=== PATIENT | male | born 1940 | race Caucasian/White ===

== ENCOUNTER 2022-08-10 08:09 | Inpatient (IN) | payer OTHER ==
[~2022-08-10] VITALS: Ht 185.4 cm; Wt 96.6 kg
[2022-08-10 08:10] VITALS: BP_SYST 157
--- NOTE | 2022-08-10 08:10 | NUR ---
BROUGHT BACK TO BED #7 AND TRIAGED. REPORT GIVEN TO EDWIGE
--- NOTE | 2022-08-10 08:13 | NUR ---
PT RECEIVED, CARE ASSUMED. PT PRESENTS SELF TO ER WITH COUGH OF DRY COUGH AND ELEVATED TEMP. CONNECTED TO TELE MONITOR: ST Mari DODGE AT BEDSIDE. WILL CONTINUE TO MONITOR
--- NOTE | 2022-08-10 08:20 | NUR ---
PT RECEIVED, CARE ASSUMED. PT PRESENTS SELF TO ER FOR EVALUATION OF COUGH, ELEVATED TEMP. CONNECTED TO TELE MONITOR: [id number]. DR AGUIRRE AT BEDSIDE.
[2022-08-10 08:51] LABS: BASOPHILS % (AUTO) 0.2 % (0.0-2.0); EOSINOPHILS % (AUTO) 0.1 % (0.0-4.0); HEMATOCRIT 40.9 % (36-54); HEMOGLOBIN 13.7 g/dL (14.0-18.0); LYMPHOCYTES # (AUTO) 4.5 K/uL (1.0-5.5); MEAN CORPUSCULAR HEMOGLOBIN 31 pg (27-31); MEAN CORPUSCULAR HGB CONC 33 % (32-36); MEAN CORPUSCULAR VOLUME 91 fL (79.0-98.0); MONOCYTES # (AUTO) 0.7 K/uL (0.0-1.0); MONOCYTES % (AUTO) 6.8 % (1.7-9.3); NEUTROPHILS # (AUTO) 4.8 K/uL (1.8-7.7); NEUTROPHILS % (AUTO) 47.9 % (40.0-70.0); PLATELET COUNT (AUTO) 147 K/uL (130-430); RED BLOOD CELL COUNT(AUTO) 4.48 MIL/uL (4.2-6.2); RED CELL DISTRIBUTION WIDTH 13.8 % (9.0-15.0); WHITE BLOOD COUNT (AUTO) 10.1 K/uL (4.8-10.8)
[2022-08-10 09:06] LABS: ANION GAP 10 (5-15); CALCIUM 8.3 mg/dL (8.4-11.0); CHLORIDE 105 mmol/L (98-107); CREATININE 1.29 mg/dL (0.55-1.30); GLUCOSE 129 mg/dL (70-99); UREA NITROGEN, BLOOD 15 mg/dL (8-21)
[2022-08-10 09:10] LABS: ALANINE AMINOTRANSFERASE 28 U/L (12-78); ALBUMIN 3.5 g/dL (3.4-4.8); ASPARTATE AMINOTRANSFERASE 19 U/L (10-37); TOTAL BILIRUBIN 0.6 mg/dL (0.0-1.0)
[2022-08-10] MEDS ORDERED: IPRATROPIUM/ALBUTEROL SULFATE 3 ML AMPUL.NEB (DUONEB) INH ONE (09:15)
--- NOTE | 2022-08-10 09:43 | NUR ---
COVID AND FLU SWABBED AND SENT TO LAB
--- NOTE | 2022-08-10 10:00 | NUR ---
INITIATED AIR/DROPLET ISOLATION.
--- NOTE | 2022-08-10 10:08 | NUR ---
SPOKE WITH PTS REGARDING +COVID, PERMISSION WAS GIVEN BY SPOUSE. DR AGUIRRE AT BEDSIDE SPEAKING WITH PT.
[2022-08-10] MEDS ORDERED: DEXAMETHASONE SOD PHOSPHATE 10 MG/ML VIAL IVP ONE (10:15)
--- NOTE | 2022-08-10 11:11 | NUR ---
Admit bed requested Patient will be admitted to care of . Admitted to TELEMETRY unit. Diagnosis COVID+ Inpatient (Yes or No) Y Observation (Yes or No) N Orientation concerns or request close to nursing station (Yes or No) N Covid Status + POSITIVE On vent or bipap N Isolation requirements COVID Needs a sitter NO From Home (Yes or if No enter name of facility) YES Requires Dialysis (Yes or No) N Med Rec Completed (Yes of No) YES
[2022-08-10] MEDS ORDERED: LEVO150T8 PO (11:16)
[2022-08-10] MEDS ORDERED: ATOR40TA68 PO (11:16)
[2022-08-10] MEDS ORDERED: CLOP75TA32 PO (11:16)
[2022-08-10] MEDS ORDERED: METO50TA7 PO (11:16)
--- NOTE | 2022-08-10 11:22 | NUR ---
Medication reconciliation completed with information provided by LIST PROVIDED. Any prior medication reconciliation on file was reviewed and corrected.
[2022-08-10] MEDS ORDERED: ASA81 PO (11:32)
[2022-08-10] MEDS ORDERED: DEXAMETHASONE SOD PHOSPHATE 10 MG/ML VIAL ONE (12:32)
--- NOTE | 2022-08-10 14:05 | NUR ---
Patient will be admitted to care of [facility]. Admitted to unit. Will go to room . Belongings list completed. Complete and up to date summary report printed. SBAR report to be given at bedside with opportunity for questions.
--- NOTE | 2022-08-10 14:14 | NUR ---
OPENING NOTES: RECEIVED BEDSIDE SBAR REPORT FROM OSITO SAUNDERS (ER), NO S/S OF ANY DISTRESS, SKIN INTACT, IV INTACT, AMBULATE IN ROOMS NS 2 LTS, BED AT LOW AND LOCKED POSITION. ALL SAFETY CHECKS DONE AND WILL DO THOUGHT THE DAY. CALL LIGHT IN REACH.
[2022-08-10 16:10] VITALS: BP_SYST 137
[2022-08-10 16:26] VITALS: BP_SYST 117
--- NOTE | 2022-08-10 18:36 | NUR ---
CLOSING NOTES: PATIENT REMAINED STABLE TODAY, NO S/S OF ANY DISTRESS NON LABOR BREATHING, BED AT LOW AND LOCKED POSITION CALL LIGHT IN REACH IV INTACT, ALL SAFETY CHECKS DONE THOUGHT THE DAY. WILL GIVE PM SHIFT NURSE BEDSIDE SBAR.
[2022-08-10] MEDS ORDERED: *LOVENOX 1MG/KG Q24H/PHARMACY XX ONE (19:00)
[2022-08-10 20:00] VITALS: BP_SYST 129
--- NOTE | 2022-08-10 20:45 | NUR ---
OPENING NOTE PT LYING IN BED AND EYES OPEN. BREATHING EVEN AND NONLABORED ON RA. A/O X4. FOUND WHEEZING SOUND ON BILATERAL OF LUNGS. COUGHING PRESENT. NO S/S DISTRESS OR PAIN. PT WAITING FOR CARDIAC MEDICATION SO INFORMED THE CARDIAC MEDICATION WILL BE START @0900. PT VERBALLY UNDERSTANDING. SAFETY CHECKS IN PLACE. CALL LIGHT IN REACH. CONTINUE TO MONITOR
[2022-08-10] MEDS ORDERED: ENOXAPARIN SODIUM 100 MG/ML SYRINGE SUBCUT SCH (21:00)
[2022-08-10] MEDS: DECADRON 4 MG TABLET PO SCH (21:24)
--- NOTE | 2022-08-10 22:25 | NUR ---
ROUNDING NOTE PT USING RESTROOM. GAIT IS STEADY. PROVIDED ORAL CARE. SAFETY CHECKS IN PLACE. CALL LIGHT IN REACH. CONTINUE TO MONITOR
--- NOTE | 2022-08-11 00:35 | NUR ---
ROUNDING NOTE PT LYING BED AND EYES CLOSED. BREATHING EVEN AND NONLABORED. COUGHING IS NOT PRESENT AT THIS MOMENT. SAFETY CHECKS IN PLACE. CALL LIGHT IN REACH. CONTINUE TO MONITOR
[2022-08-11 01:03] VITALS: BP_SYST 118
[2022-08-11 02:39] VITALS: BP_SYST 129
[2022-08-11 06:55] LABS: HEMATOCRIT 40.1 % (36-54); HEMOGLOBIN 13.2 g/dL (14.0-18.0); LYMPHOCYTES # (AUTO) 5.7 K/uL (1.0-5.5); MEAN CORPUSCULAR HEMOGLOBIN 30 pg (27-31); MEAN CORPUSCULAR HGB CONC 33 % (32-36); MEAN CORPUSCULAR VOLUME 90 fL (79.0-98.0); MONOCYTES # (AUTO) 0.3 K/uL (0.0-1.0); MONOCYTES % (AUTO) 2.2 % (1.7-9.3); NEUTROPHILS # (AUTO) 8.2 K/uL (1.8-7.7); NEUTROPHILS % (AUTO) 57.8 % (40.0-70.0); PLATELET COUNT (AUTO) 161 K/uL (130-430); RED BLOOD CELL COUNT(AUTO) 4.43 MIL/uL (4.2-6.2); RED CELL DISTRIBUTION WIDTH 13.9 % (9.0-15.0); WHITE BLOOD COUNT (AUTO) 14.2 K/uL (4.8-10.8)
[2022-08-11] MEDS ORDERED: LEVOTHYROXINE SODIUM 0.15 MG TABLET PO SCH (07:00)
--- NOTE | 2022-08-11 07:05 | NUR ---
OPENING NOTES Patient laying in bed resting. A/O x 4, Irish speaking. Patient breathing even and unlabored on room air. No pain, no distress, no SOB. Patient is on regular diet. Patient has right wrist 18g. Patient on droplet isolation due to Covid positive. Call light within reach, all needs met, will continue with plan of care.
[2022-08-11 07:17] LABS: ANION GAP 9 (5-15); CALCIUM 8.7 mg/dL (8.4-11.0); CHLORIDE 105 mmol/L (98-107); CREATININE 1.07 mg/dL (0.55-1.30); GLUCOSE 153 mg/dL (70-99); UREA NITROGEN, BLOOD 19 mg/dL (8-21)
--- NOTE | 2022-08-11 07:27 | NUR ---
CLOSING NOTE PT LYING IN BED AND EYES OPEN. BREATHING EVEN AND NONLABORED ON RA. A/O X4. NO S/S DISTRESS OR PAIN. SYNTHROID GIVEN ORDERED. SAFETY CHECKS IN PLACE. CALL LIGHT IN REACH. ENDORSED TO DAY SHIFT NURSE
[2022-08-11 07:37] VITALS: BP_SYST 133
[2022-08-11] MEDS: DECADRON 4 MG TABLET PO SCH (08:19)
[2022-08-11] MEDS ORDERED: METOPROLOL SUCCINATE 25 MG TAB.SR.24H (TOPROL XL) PO SCH (09:00)
[2022-08-11] MEDS ORDERED: ATORVASTATIN 20 MG TABLET PO SCH (09:00)
[2022-08-11] MEDS ORDERED: ASPIRIN 81 MG TAB.CHEW PO SCH (09:00)
[2022-08-11] MEDS ORDERED: CLOPIDOGREL BISULFATE 75 MG TABLET PO SCH (09:00)
--- NOTE | 2022-08-11 11:05 | NUR ---
ROUNDING NOTE Patient lying in bed, eye open, A/O x4. Breathing labored, even on room air. Safety check in place. Continue to monitor.
[2022-08-11 11:34] VITALS: BP_SYST 132
[2022-08-11] MEDS ORDERED: Zinc Sulfate PO (14:40)
[2022-08-11] MEDS ORDERED: DEC4 PO (14:40)
[2022-08-11 14:46] VITALS: BP_SYST 132
[2022-08-11 15:24] VITALS: BP_SYST 139
--- NOTE | 2022-08-11 15:25 | NUR ---
D/C Patient Patient given medication reconciliation form and D/C instructions. Exit Care provided. Patient verbalized understanding. MD Sanabria discussed with patient the results and treatment provided. Ambulatory with steady gait for discharge to home. Patient in stable condition, ID band removed. IV catheter removed, intact and dressing applied, no active bleeding. Med rec forms given. Patient educated on disease management. All belongings sent with patient.
== END 2022-08-11 15:25 | disposition home or self-care (01) | DRG 177 ==
LOC: SED 08:09 → STU 11:09
PROVIDERS: ADMIT Specialist; ATTEND Specialist
DX: U07.1 COVID-19 (principal); J12.82 Pneumonia due to coronavirus disease 2019; J44.1 Chronic obstructive pulmonary disease with (acute) exacerbation; J44.0 Chronic obstructive pulmonary disease with (acute) lower respiratory infection; R65.10 Systemic inflammatory response syndrome (SIRS) of non-infectious origin without acute organ dysfunction; R32 Unspecified urinary incontinence; I10 Essential (primary) hypertension; E78.5 Hyperlipidemia, unspecified; I25.10 Atherosclerotic heart disease of native coronary artery without angina pectoris; F17.210 Nicotine dependence, cigarettes, uncomplicated; E03.9 Hypothyroidism, unspecified; Z79.82 Long term (current) use of aspirin; Z79.899 Other long term (current) drug therapy; Z98.61 Coronary angioplasty status; Z82.49 Family history of ischemic heart disease and other diseases of the circulatory system; Z82.5 Family history of asthma and other chronic lower respiratory diseases
CPT/HCPCS: 36415; 36600; 71045; 80048; 80053; 82803; 84484; 85025; 93005; 94640; 94760; 96374; 99285; G0378; J1100; J1650; J8540

== ENCOUNTER 2022-12-11 21:21 | Emergency (ER) | payer OTHER ==
[~2022-12-11] VITALS: Ht 185.4 cm; Wt 96.2 kg
[~2022-12-11 21:21] MED LIST: ASA81 PO; ATOR40TA68 PO; CLOP75TA32 PO; DEC4 PO; LEVO150T8 PO; METO50TA7 PO; Zinc Sulfate PO
[2022-12-11 21:34] VITALS: BP_SYST 153; PULSE 61; RESP 18; TEMP 98.7; O2SAT 95
[2022-12-11] MEDS ORDERED: ASPIRIN 325 MG TABLET PO ONE (21:45)
[2022-12-11 22:02] LABS: HEMATOCRIT 42.6 % (36-54); HEMOGLOBIN 14.1 g/dL (14.0-18.0); MEAN CORPUSCULAR HEMOGLOBIN 30 pg (27-31); MEAN CORPUSCULAR HGB CONC 33 % (32-36); MEAN CORPUSCULAR VOLUME 90 fL (79.0-98.0); PLATELET COUNT (AUTO) 163 K/uL (130-430); RED BLOOD CELL COUNT(AUTO) 4.71 MIL/uL (4.2-6.2); RED CELL DISTRIBUTION WIDTH 13.9 % (9.0-15.0); WHITE BLOOD COUNT (AUTO) 9.9 K/uL (4.8-10.8)
[2022-12-11 22:15] LABS: ANION GAP 9 (5-15); CALCIUM 8.4 mg/dL (8.4-11.0); CARBON DIOXIDE 26 mmol/L (23-29); CHLORIDE 105 mmol/L (98-107); GLUCOSE 139 mg/dL (74-106); POTASSIUM 3.8 mmol/L (3.5-5.1); SODIUM SERUM 140 mmol/L (136-145); UREA NITROGEN, BLOOD 16 mg/dL (8-21)
[2022-12-11 22:22] LABS: ALANINE AMINOTRANSFERASE 20 U/L (12-78); ALBUMIN 3.5 g/dL (3.4-4.8); ASPARTATE AMINOTRANSFERASE 17 U/L (10-37); TOTAL BILIRUBIN 0.4 mg/dL (0.0-1.0); TOTAL PROTEIN, SERUM 6.5 g/dL (6.4-8.3)
[2022-12-11 22:24] LABS: BAND % (MANUAL) 0 % (0-6); BASOPHILS % (MANUAL) 0 % (0-2); EOSINOPHILS % (MANUAL) 3 % (0-7); LYMPHOCYTES % (MANUAL) 55 % (20-46); MONOCYTES % (MANUAL) 8 % (0-11); PLATELET ESTIMATE ADEQUATE (ADEQUATE); TEAR DROP CELLS FEW
[2022-12-11 22:25] LABS: OVALOCYTES FEW
[2022-12-11] MEDS ORDERED: NITROGLYCERIN 0.4 MG TAB.SUBL SL ONE (23:00)
[2022-12-11] MEDS ORDERED: ONDANSETRON HCL 4 MG/2 ML VIAL IVP ONE (23:00)
[2022-12-11] MEDS ORDERED: FAMOTIDINE PF 20 MG/2 ML VIAL IVP ONE (23:00)
[2022-12-11] MEDS ORDERED: FAMOTIDINE PF 20 MG/2 ML VIAL ONE (23:07)
[2022-12-11] MEDS ORDERED: HYDROcodone/ACETAMIN 5-325 MG TAB (NORCO/ VICODIN) PO ONE (23:45)
[2022-12-12 01:19] VITALS: BP_SYST 112; PULSE 52; RESP 20; TEMP 97.7; O2SAT 95
== END 2022-12-12 00:46 | disposition home or self-care (01) ==
LOC: SED 21:21
DX: R07.9 Chest pain, unspecified (principal); R11.2 Nausea with vomiting, unspecified; Z79.899 Other long term (current) drug therapy
CPT/HCPCS: 99285; 96374; 96375; 85027; 80053; 85007; 84484; 36415; 93005; 71045; J3490; J2405

== ENCOUNTER 2022-12-14 13:32 | Inpatient (IN) | payer OTHER ==
[~2022-12-14] VITALS: Ht 185.4 cm; Wt 96.2 kg
[2022-12-14 13:35] VITALS: BP_SYST 134; PULSE 65; RESP 18; TEMP 97; O2SAT 95
[2022-12-14] MEDS ORDERED: ACETAMINOPHEN 325 MG TABLET PO ONE (14:30)
[2022-12-14] MEDS ORDERED: ASPIRIN 81 MG TAB.CHEW PO ONE (14:30)
[2022-12-14] MEDS ORDERED: NITROGLYCERIN 1 INCH (GM) OINT. TP ONE (14:30)
[2022-12-14] MEDS ORDERED: NITROGLYCERIN 0.4 MG TAB.SUBL SL ONE (14:30)
[2022-12-14] MEDS ORDERED: MORPHINE 2 MG/ML INJ. SYRINGE IVP ONE (15:15)
[2022-12-14] MEDS ORDERED: ONDANSETRON HCL 4 MG/2 ML VIAL IVP ONE (15:15)
[2022-12-14 15:23] LABS: HEMATOCRIT 41.8 % (36-54); HEMOGLOBIN 14.1 g/dL (14.0-18.0); MEAN CORPUSCULAR HEMOGLOBIN 30 pg (27-31); MEAN CORPUSCULAR HGB CONC 34 % (32-36); MEAN CORPUSCULAR VOLUME 90 fL (79.0-98.0); PLATELET COUNT (AUTO) 168 K/uL (130-430); RED BLOOD CELL COUNT(AUTO) 4.65 MIL/uL (4.2-6.2); RED CELL DISTRIBUTION WIDTH 13.9 % (9.0-15.0); WHITE BLOOD COUNT (AUTO) 9.8 K/uL (4.8-10.8)
[2022-12-14 15:30] LABS: ANION GAP 5 (5-15); CALCIUM 8.4 mg/dL (8.4-11.0); CARBON DIOXIDE 28 mmol/L (23-29); CHLORIDE 102 mmol/L (98-107); CREATININE 1.25 mg/dL (0.55-1.30); GLUCOSE 112 mg/dL (74-106); POTASSIUM 4.2 mmol/L (3.5-5.1); SODIUM SERUM 135 mmol/L (136-145); UREA NITROGEN, BLOOD 14 mg/dL (8-21)
[2022-12-14 15:39] LABS: ALANINE AMINOTRANSFERASE 19 U/L (12-78); ALBUMIN 3.5 g/dL (3.4-4.8); ASPARTATE AMINOTRANSFERASE 17 U/L (10-37); LIPASE 79 U/L (73-393); TOTAL BILIRUBIN 0.5 mg/dL (0.0-1.0); TOTAL PROTEIN, SERUM 6.5 g/dL (6.4-8.3)
[2022-12-14] MEDS ORDERED: PANTOPRAZOLE SODIUM 40 MG/VIAL (PROTONIX) IVP ONE (16:30)
[2022-12-14] MEDS ORDERED: FLUT1BLS5 INH (17:08)
[2022-12-14] MEDS ORDERED: PANT20TA16 PO (17:08)
[2022-12-14 17:09] LABS: BAND % (MANUAL) 1 % (0-6); BASOPHILS % (MANUAL) 0 % (0-2); EOSINOPHILS % (MANUAL) 2 % (0-7); LYMPHOCYTES % (MANUAL) 56 % (20-46); MONOCYTES % (MANUAL) 3 % (0-11); OVALOCYTES FEW; PLATELET ESTIMATE ADEQUATE (ADEQUATE)
[2022-12-14] MEDS ORDERED: MAG-AL HYDROX/SIMETH 30 ML UDC PO ONE (17:30)
[2022-12-14 18:00] VITALS: BP_SYST 130; PULSE 60; RESP 16; TEMP 98.2; O2SAT 97
[2022-12-14 18:16] VITALS: BP_SYST 130; PULSE 60; RESP 16; TEMP 98.2
[2022-12-14] MEDS ORDERED: KETOROLAC TROMETHAMINE 15 MG VIAL IVP ONE (19:00)
[2022-12-14 19:51] VITALS: O2SAT 97
[2022-12-14 20:00] VITALS: BP_SYST 123; PULSE 60; RESP 18; TEMP 98.3; O2SAT 98
[2022-12-14] MEDS ORDERED: MILK OF MAGNESIA 30 ML UDC PO ONE (20:45)
[2022-12-14] MEDS: PANTOPRAZOLE SODIUM 40 MG TAB PO SCH (21:43)
[2022-12-14] MEDS: HEPARIN SODIUM,PORCINE 5,000 UNITS/ML VIAL SUBCUT SCH (21:47)
[2022-12-15 00:23] VITALS: BP_SYST 132; PULSE 55; RESP 14; TEMP 97.1; O2SAT 98
[2022-12-15] MEDS: HEPARIN SODIUM,PORCINE 5,000 UNITS/ML VIAL SUBCUT SCH (06:56)
[2022-12-15] MEDS ORDERED: LEVOTHYROXINE SODIUM 0.15 MG TABLET PO SCH (07:00)
[2022-12-15 08:00] VITALS: BP_SYST 134; PULSE 63; RESP 15; TEMP 98.8; O2SAT 94
[2022-12-15] MEDS: PANTOPRAZOLE SODIUM 40 MG TAB PO SCH (08:45)
[2022-12-15] MEDS ORDERED: ATORVASTATIN 20 MG TABLET PO SCH (09:00)
[2022-12-15] MEDS ORDERED: ISOSORBIDE MONONITRATE 30 MG TAB.ER.24H PO SCH (09:00)
[2022-12-15] MEDS ORDERED: ASPIRIN 81 MG TAB.CHEW PO SCH (09:00)
[2022-12-15] MEDS ORDERED: CLOPIDOGREL BISULFATE 75 MG TABLET PO SCH (09:00)
[2022-12-15] MEDS ORDERED: CELE100C99 PO (12:16)
[2022-12-15 12:28] LABS: ANION GAP 7 (5-15); CALCIUM 8.3 mg/dL (8.4-11.0); CARBON DIOXIDE 28 mmol/L (23-29); CHLORIDE 103 mmol/L (98-107); CREATININE 1.12 mg/dL (0.55-1.30); GLUCOSE 106 mg/dL (74-106); POTASSIUM 4.1 mmol/L (3.5-5.1); SODIUM SERUM 138 mmol/L (136-145); UREA NITROGEN, BLOOD 13 mg/dL (8-21)
[2022-12-15 12:47] VITALS: BP_SYST 133; PULSE 60; RESP 16; TEMP 98.2; O2SAT 98
[2022-12-15] MEDS ORDERED: MELOXICAM 7.5 MG TABLET PO ONE (15:30)
[2022-12-15 16:19] VITALS: BP_SYST 135; PULSE 62; RESP 15; TEMP 98.7; O2SAT 96
[2022-12-15 18:05] VITALS: BP_SYST 135; PULSE 62; RESP 15; TEMP 98.7; O2SAT 96
[2022-12-15] MEDS ORDERED: MILK OF MAGNESIA 30 ML UDC PO PRN (18:15)
[2022-12-15] MEDS ORDERED: IBUPROFEN 200 MG TABLET PO SCH (18:15)
[2022-12-15] MEDS ORDERED: CELECOXIB 100 MG CAPSULE PO ONE (18:30)
[2022-12-16] MEDS ORDERED: MELOXICAM 7.5 MG TABLET PO SCH (09:00)
== END 2022-12-15 19:10 | disposition home or self-care (01) | DRG 206 ==
LOC: SED 13:32 → STU 17:00
PROVIDERS: ADMIT Specialist; ATTEND Specialist
DX: M94.0 Chondrocostal junction syndrome [Tietze] (principal); K44.9 Diaphragmatic hernia without obstruction or gangrene; I10 Essential (primary) hypertension; I25.10 Atherosclerotic heart disease of native coronary artery without angina pectoris; I35.0 Nonrheumatic aortic (valve) stenosis; I45.10 Unspecified right bundle-branch block; K80.20 Calculus of gallbladder without cholecystitis without obstruction; E03.9 Hypothyroidism, unspecified; E78.5 Hyperlipidemia, unspecified; J44.9 Chronic obstructive pulmonary disease, unspecified; Z79.82 Long term (current) use of aspirin; Z79.899 Other long term (current) drug therapy; Z95.5 Presence of coronary angioplasty implant and graft; Z87.891 Personal history of nicotine dependence
CPT/HCPCS: 36415; 71045; 71270-TC; 76376; 76700-TC; 80048; 80053; 83690; 83880; 84484; 85007; 85027; 85651-TC; 93005; 93306; 96374; 96375; 99285; C9113; G0378; J1644; J1885; J2270; J2405

== ENCOUNTER 2023-05-07 05:55 | Day surgery (SDC) | payer OTHER ==
[~2023-05-07] VITALS: Ht 185.4 cm; Wt 95.3 kg
[~2023-05-07 05:55] MED LIST changes: +CELE100C99 PO; +FLUT1BLS5 INH; +PANT20TA16 PO
[2023-05-07] MEDS ORDERED: CEFAZOLIN SOD 2 GM in D5W 50 ML IV ONE (07:00)
[2023-05-07 07:10] VITALS: O2SAT 99
[2023-05-07] MEDS ORDERED: DEXAMETHASONE SOD PHOSPHATE 4 MG/ML VIAL ONE (07:30)
[2023-05-07] MEDS ORDERED: ONDANSETRON HCL 4 MG/2 ML VIAL ONE ×2 (07:30→10:18)
[2023-05-07] MEDS ORDERED: LIDOCAINE 2%, 20 ML MDV ONE (07:30)
[2023-05-07] MEDS ORDERED: WATER FOR IRRIGATION,STERILE 1,000 ML IRRIG.SOLN IR ONE (07:30)
[2023-05-07] MEDS ORDERED: ROCURONIUM BROMIDE 10 MG/ML (ZEMURON) ONE (07:30)
[2023-05-07] MEDS ORDERED: NS 1000 ML IV.SOLN IV ONE ×2 (07:30)
[2023-05-07] MEDS ORDERED: BUPIVACAINE /PF 0.25% 30 ML VIAL INJ ONE (07:30)
[2023-05-07] MEDS ORDERED: SUGAMMADEX SODIUM 200 MG/2 ML VIAL IV ONE (07:30)
[2023-05-07] MEDS ORDERED: DESFLURANE 15 MIN GAS INH ONE (07:30)
[2023-05-07] MEDS ORDERED: PROPOFOL 200MG/ 20ML VIAL (DIPRIVAN) IV ONE (07:30)
[2023-05-07] MEDS ORDERED: ACETAMINOPHEN I.V. 1000 MG 100 ML IV ONE (07:58)
[2023-05-07] MEDS ORDERED: HYDROmorphone 1 MG/ML INJ. CARTRIDGE IVP PRN (08:30)
[2023-05-07] MEDS ORDERED: ONDANSETRON HCL 4 MG/2 ML VIAL IVP PRN (08:30)
[2023-05-07] MEDS ORDERED: hydrALAZINE HCL 20 MG/ML VIAL IVP PRN (08:30)
[2023-05-07] MEDS ORDERED: LABETALOL 100 MG/ 20ML VIAL IVP PRN (08:30)
[2023-05-07] MEDS ORDERED: LR 1,000 ML IV SCH (08:30)
[2023-05-07] MEDS ORDERED: MEPERIDINE HCL/PF 25 MG/ML DISP.SYRIN IVP PRN (08:30)
[2023-05-07] MEDS ORDERED: HYDROcodone/ACETAMIN 5-325 MG TAB (NORCO/ VICODIN) PO PRN ×2 (10:00)
[2023-05-07] MEDS ORDERED: D5/0.45 NS 1,000 ML IV SCH (10:00)
[2023-05-07] MEDS ORDERED: HYDROmorphone 1 MG/ML INJ. CARTRIDGE ONE (10:19)
[2023-05-07] MEDS ORDERED: MEPERIDINE HCL/PF 25 MG/ML DISP.SYRIN ONE (10:19)
[2023-05-07] MEDS: HYDROmorphone 1 MG/ML INJ. CARTRIDGE IVP PRN ×2 (10:20→10:30)
[2023-05-07] MEDS ORDERED: BENZOCAINE/MENTHOL 1 EACH LOZENGE MM PRN (12:00)
[2023-05-07 16:03] VITALS: BP_SYST 122; PULSE 74; RESP 17
== END 2023-05-07 14:58 | disposition home or self-care (01) ==
LOC: SDS 05:55 → SMU 05:55 → SDS 14:58
PROVIDERS: ATTEND Colon & Rectal Surgery
DX: K80.10 Calculus of gallbladder with chronic cholecystitis without obstruction (principal); I12.9 Hypertensive chronic kidney disease with stage 1 through stage 4 chronic kidney disease, or unspecified chronic kidney disease; N18.30 Chronic kidney disease, stage 3 unspecified; D69.2 Other nonthrombocytopenic purpura; D84.81 Immunodeficiency due to conditions classified elsewhere; I70.0 Atherosclerosis of aorta; J44.9 Chronic obstructive pulmonary disease, unspecified; E78.5 Hyperlipidemia, unspecified; I25.10 Atherosclerotic heart disease of native coronary artery without angina pectoris; E03.9 Hypothyroidism, unspecified; K21.9 Gastro-esophageal reflux disease without esophagitis; Z95.5 Presence of coronary angioplasty implant and graft; E66.01 Morbid (severe) obesity due to excess calories; Z79.899 Other long term (current) drug therapy
CPT/HCPCS: 87081; 47562; 99285; 88304; J3490 ×2; J0690; J1100; J2405; J2704; J1170; J2175; J7060; J7030; J0131; J2001; Q9967